=== PATIENT | female | born 2000 | race Caucasian/White ===

== ENCOUNTER 2021-10-28 22:32 | Emergency (ER) | payer OTHER ==
[2021-10-28 23:08] VITALS: PULSE 73
[2021-10-28] MEDS ORDERED: Sodium Chloride 0.9% 1000 ML 1,000 ML IV STA (23:26)
[2021-10-28] MEDS ORDERED: Reglan 10 MG/2 ML IV ONE (23:27)
[2021-10-28] MEDS ORDERED: Reglan 10 MG/2 ML ONE (23:38)
[2021-10-28] MEDS ORDERED: Sodium Chloride 0.9% 1000 ML 1,000 ML ONE (23:38)
[2021-10-28 23:43] VITALS: O2SAT 99
[2021-10-28 23:45] LABS: Absolute Neutrophil Ct (ANC) 5.65 x10^3/uL (1.4-6.9); Basophil (Absolute #) 0.03 x10^3/uL (0-0.4); Eosinophil % 0.5 % (0.00-5.0); Eosinophil (Absolute #) 0.04 x10^3/uL (0-0.5); Hematocrit 38.3 % (35-47); Lymphocyte (Absolute #) 2.26 x10^3/uL (1.0-4.6); Lymphocytes % 25.8 % (24.0-44.0); Mean Cell Volume 88.2 fL (78-100); Mean Corpuscular Hgb Concent. 33.9 g/dL (32-36); Mean Platelet Volume 9.3 fL (7.5-11.0); Monocyte (Absolute #) 0.77 x10^3/uL (0.0-1.3); Monocytes % 8.8 % (0.0-12.0); Neutrophil % 64.4 % (36.0-66.0); Platelet Count 314 x10^3/uL (150-450); Red Blood Count 4.34 x10^6/uL (4.1-5.4); Red Cell Distribution Width 12.2 % (11.5-14.0); White Blood Count 8.8 x10^3/uL (4.0-10.5)
[2021-10-29 00:05] LABS: ALBUMIN 4.1 g/dL (3.5-5.0); ALKALINE PHOSPHATASE 59 U/L (38-126); AMYLASE 85 U/L (30-110); ANION GAP 15.4 MEQ/L (5-15); BLOOD UREA NITROGEN 8 mg/dL (7-17); CHLORIDE 102 mmol/L (98-107); Calcium 9.7 mg/dL (8.4-10.2); Carbon Dioxide 21 mmol/L (22-30); Creatinine 1 0.53 mg/dL (0.52-1.04); EST GLOMERULAR FILTRATION RATE > 60.0 ML/MIN; Glucose 90 mg/dL (74-106); Potassium 4.2 mmol/L (3.5-5.1); SGOT/AST 28 U/L (14-36); SGPT/ALT 39 U/L (0-35); SODIUM 134 mmol/L (137-145); Total Protein 7.2 g/dL (6.3-8.2)
[2021-10-29 00:07] VITALS: BP 138/74
[2021-10-29 00:23] LABS: Bacteria FEW /HPF (NEGATIVE); Epithelial Cells RARE /HPF (FEW); Mucus MANY /HPF (NEGATIVE)
[2021-10-29 00:24] LABS: Appearance CLEAR (CLEAR); Bilirubin SMALL (NEGATIVE); Glucose NEGATIVE (NEGATIVE); Ketones LARGE-160 (NEGATIVE); Specific Gravity >=1.030 (1.005-1.025)
[2021-10-29 00:25] LABS: Dipstick done @ ? MAIN LAB; Nitrite NEGATIVE (NEGATIVE); Ph 5.5 (5-6); Protein,Urine Dip 30 (Negative); RBC NEGATIVE Ery/ul (0-5); Urine Cultured Indicated? NO; Urobilinogen 1 mg/dL (0-1)
--- NOTE | 2021-10-29 00:39 | ERPHSYRPT ---
- History of Present Illness Time Seen by Provider: 10/28/21 22:40 Historian: patient Exam Limitations: no limitations Patient Subjective Stated Complaint: vomiting, unable to keep anything down at all Triage Nursing Assessment: pt ambulated to room, a&o x3, skin WNL. bowel sounds hypoactive. pt states she is [address] Ayala in [facility] Physician History: Patient is a 20-year-old 1 para 0 white female with 10 weeks gestation who presents with an increase in vomiting. She had been vomiting once a day for several days even weeks but then the last 3 days she has had increased vomiting to multiple times per day. She denies any pain no fever chills or sweats. Timing/Duration: day(s) (3) Activities at Onset: none Severity of Pain-Max: none Severity of Pain-Current: none Modifying Factors: Improves With: vomiting Associated Symptoms: nausea Previous symptoms: same symptoms as today Allergies/Adverse Reactions: No Known Drug Allergies Allergy (Unverified 10/28/21 23:05) Home Medications: Ondansetron [Ondansetron Odt ] 4 gm SL Q4-6HPRN PRN 10/28/21 [History] Hx Influenza Vaccination/Date Given: No Hx Pneumococcal Vaccination/Date Given: No Travel Risk - International Travel Have you traveled outside of the country in past 3 weeks: No - Coronavirus Screening Are you exhibiting any of the following symptoms?: Yes Symptoms: Vomiting/Diarrhea Close contact with a COVID-19 positive Pt in past 14-21 Days: No - Vaccine Status Have you recieved a Covid-19 vaccination: No - Review of Systems Constitutional: No Fever, No Chills Eyes: No Symptoms Ears, Nose, & Throat: No Symptoms Respiratory: No Cough, No Dyspnea Cardiac: No Chest Pain, No Edema, No Syncope Abdominal/Gastrointestinal: Nausea, Vomiting, No Abdominal Pain, No Diarrhea Genitourinary Symptoms: No Dysuria Musculoskeletal: No Back Pain, No Neck Pain Skin: No Rash Neurological: No Dizziness, No Focal Weakness, No Sensory Changes Psychological: No Symptoms Endocrine: No Symptoms All Other Systems: Reviewed and Negative - Past Medical History Cardiac History: No Pertinent History Respiratory History: Asthma Musculoskeletal History: No Pertinent History GI Medical History: No Pertinent History History: No Pertinent History Psycho-Social History: Anxiety, Depression Female Reproductive Disorders: No Pertinent History - Past Surgical History Past Surgical History: Yes Neuro Surgical History: No Pertinent History Cardiac: No Pertinent History Respiratory: No Pertinent History Gastrointestinal: No Pertinent History Genitourinary: No Pertinent History Musculoskeletal: No Pertinent History Female Surgical History: No Pertinent History - Social History Smoking Status: Former smoker Drug Use: none Patient Lives Alone: No (S.O.) - Female History Hx Now: Yes Expected Date of Delivery: 05/25/22 - Nursing Vital Signs Nursing Vital Signs: Initial Vital Signs Temperature 98.1 F 10/28/21 22:33 Pulse Rate 73 10/28/21 22:33 Respiratory Rate 32 H 10/28/21 22:33 Blood Pressure 126/78 10/28/21 22:33 O2 Sat by Pulse Oximetry 98 10/28/21 22:33 Pain Scale Pain Intensity 2 - Physical Exam General Appearance: mild distress, alert Eye Exam: PERRL/EOMI, eyes nml inspection Ears, Nose, Throat Exam: normal ENT inspection, pharynx normal, moist mucous membranes Neck Exam: normal inspection, non-tender, supple, full range of motion Respiratory Exam: normal breath sounds, lungs clear, No respiratory distress Cardiovascular Exam: regular rate/rhythm, normal heart sounds Gastrointestinal/Abdomen Exam: soft, normal bowel sounds, tenderness, distention, No mass Back Exam: normal inspection, normal range of motion, No CVA tenderness, No vertebral tenderness Extremity Exam: normal inspection, normal range of motion, pelvis stable Neurologic Exam: alert, oriented x 3, cooperative, normal mood/affect, nml cerebellar function, sensation nml, No motor deficits Skin Exam: normal color, warm, dry SpO2 Interpretation: normal SpO2: 99 O2 Delivery: Room Air - Course Nursing assessment & vital signs reviewed: Yes Ordered Tests: Active Orders 24 hr Category Date Time Status AMYLASE Stat Lab 10/28/21 23:40 Completed CBC W DIFF Stat Lab 10/28/21 23:40 Completed CMP Stat Lab 10/28/21 23:40 Completed UA W/RFX CULTURE Stat Lab 10/29/21 00:17 Completed Medication Summary Discontinued Medications Generic Name Dose Route Start Last Admin Trade Name Freq PRN Reason Stop Dose Admin Sodium Chloride 1,000 mls @ 999 mls/hr 10/28/21 23:26 10/28/21 23:40 Sodium Chloride 0.9% 1000 Ml IV 10/29/21 00:26 999 mls/hr .Q1H1M STA Administration Sodium Chloride Confirm 10/28/21 23:38 Sodium Chloride 0.9% 1000 Ml Administered 10/28/21 23:39 Dose 1,000 mls @ ud .ROUTE .[employer] ONE Metoclopramide HCl 10 mg 10/28/21 23:27 10/28/21 23:40 Metoclopramide Hcl 10 Mg/2 Ml Vial IV 10/28/21 23:28 10 mg STAT ONE Administration Metoclopramide HCl Confirm 10/28/21 23:38 Metoclopramide Hcl 10 Mg/2 Ml Vial Administered 10/28/21 23:39 Dose 10 mg .[email or web address] ONE Lab/Rad Data: Laboratory Result Diagrams 10/28/21 23:40 10/28/21 23:40 Laboratory Results 10/29/21 10/28/21 10/28/21 Range/Units 00:17 23:40 23:40 WBC 8.8 (4.0-10.5) x10^3/uL RBC 4.34 (4.1-5.4) x10^6/uL Hgb 13.0 (12.0-16.0) g/dL Hct 38.3 (35-47) % MCV 88.2 (78-100) fL MCH 30.0 (26-32) pg MCHC 33.9 (32-36) g/dL RDW 12.2 (11.5-14.0) % Plt Count 314 (150-450) x10^3/uL MPV 9.3 (7.5-11.0) fL Gran % 64.4 (36.0-66.0) % Immature Gran % (Auto) 0.2 (0.00-0.4) % Nucleat RBC Rel Count 0.0 (0.00-0.1) % Eos # (Auto) 0.04 (0-0.5) x10^3/uL Immature Gran # (Auto) 0.02 (0.00-0.03) x10^3u/L Absolute Lymphs (auto) 2.26 (1.0-4.6) x10^3/uL Absolute Monos (auto) 0.77 (0.0-1.3) x10^3/uL Absolute Nucleated RBC 0.00 (0.00-0.01) x10^3u/L Lymphocytes % 25.8 (24.0-44.0) % Monocytes % 8.8 (0.0-12.0) % Eosinophils % 0.5 (0.00-5.0) % Basophils % 0.3 (0.0-0.4) % Absolute Granulocytes 5.65 (1.4-6.9) x10^3/uL Basophils # 0.03 (0-0.4) x10^3/uL Sodium 134 L (137-145) mmol/L Potassium 4.2 (3.5-5.1) mmol/L Chloride 102 (98-107) mmol/L Carbon Dioxide 21 L (22-30) mmol/L Anion Gap 15.4 H (5-15) MEQ/L BUN 8 (7-17) mg/dL Creatinine 0.53 (0.52-1.04) mg/dL Estimated GFR > 60.0 ML/MIN Glucose 90 (74-106) mg/dL Calcium 9.7 (8.4-10.2) mg/dL Total Bilirubin 0.40 (0.2-1.3) mg/dL AST 28 (14-36) U/L ALT 39 H (0-35) U/L Alkaline Phosphatase 59 (38-126) U/L Serum Total Protein 7.2 (6.3-8.2) g/dL Albumin 4.1 (3.5-5.0) g/dL Amylase 85 (30-110) U/L Urinalys Dipstick Clnc MAIN LAB Urine Color YELLOW (YELLOW) Urine Appearance CLEAR (CLEAR) Urine pH 5.5 (5-6) Ur Specific [place] >=1.030 (1.005-1.025) POC Urine Protein Conf 30 (Negative) Urine Ketones LARGE-160 (NEGATIVE) Urine Nitrite NEGATIVE (NEGATIVE) Urine Bilirubin SMALL (NEGATIVE) Urine Urobilinogen 1 (0-1) mg/dL Urine Leukocytes NEGATIVE (NEGATIVE) Urine WBC (Auto) NONE (0-5) /HPF Urine RBC (Auto) NONE (0-2) /HPF U Epithel Cells (Auto) RARE (FEW) /HPF Urine Bacteria (Auto) FEW (NEGATIVE) /HPF Urine RBC NEGATIVE (0-5) [place]/ul Urine Mucus (Auto) MANY (NEGATIVE) /HPF Ur Culture Indicated? NO Urine Glucose NEGATIVE (NEGATIVE) mg/dL - Progress Progress: improved - Departure Departure Disposition: Home Clinical Impression: Hyperemesis gravidarum Condition: Stable Critical Care Time: No Referrals: DOCTOR,NO FAMILY [Primary Care Provider] - Follow up/PCP as directed Instructions: Hyperemesis Gravidarum (DC) Prescriptions: Metoclopramide HCl 10 mg [Reglan 10 MG] 10 mg PO Q6H 7 Days #30 tablet
== END 2021-10-29 01:00 | disposition home or self-care (01) ==
LOC: ED 22:32
DX: O21.0 Mild hyperemesis gravidarum (principal); Z3A.10 10 weeks gestation of pregnancy; Z28.310 Unvaccinated for COVID-19
CPT/HCPCS: 36000; 36415; 80053; 81015; 82150; 85025; 96374; 99284

== ENCOUNTER 2022-01-10 04:37 | Emergency (ER) | payer OTHER ==
[2022-01-10 04:58] VITALS: O2SAT 99
--- NOTE | 2022-01-10 05:30 | ERPHSYRPT ---
- History of Present Illness Time Seen by Provider: 01/10/22 05:22 Source: patient Exam Limitations: no limitations Patient Subjective Stated Complaint: pt states her glands in her rt neck are swollen and pain is now going into her jaw and her scalp Triage Nursing Assessment: pt alert and oriented, answers questions approp. pt ambulatory with steady gait noted. respirations nonlabored. skin warm and dry. pt reports tenderness to rt neck with palpation. Physician History: 21 years old 1 para 0 at 20 weeks gestation presented in the ER with chief complaint of right neck jaw and temporal area pain. Patient reports she has swollen glands in the neck with pain radiating to the jaw and temples for the last 4 days with progressive worsening to palpation and movements of jaw. She called her OB and has taken 2 doses of amoxicillin but does not feel much better. She is worried about herself and her baby. She wants to make sure that fetus is doing okay. No fever or chills reported. No sore throat. Denies pelvic/abdominal cramping, vaginal bleeding or discharge. Timing/Duration: day(s) (4), gradual onset, worse Severity: moderate Modifying Factors: Worsens With: movement Associated Symptoms: denies symptoms Allergies/Adverse Reactions: No Known Drug Allergies Allergy (Verified 01/10/22 05:00) Home Medications: Amoxicillin 500 mg PO TID 01/10/22 [History] Hx Tetanus, Diphtheria Vaccination/Date Given: Yes Hx Influenza Vaccination/Date Given: No Hx Pneumococcal Vaccination/Date Given: No Immunizations Up to Date: Yes Travel Risk - International Travel Have you traveled outside of the country in past 3 weeks: No - Coronavirus Screening Are you exhibiting any of the following symptoms?: No Close contact with a COVID-19 positive Pt in past 14-21 Days: No - Vaccine Status Have you recieved a Covid-19 vaccination: No - Review of Systems Constitutional: No Symptoms Eyes: No Symptoms Ears, Nose, & Throat: Painful Swallowing Respiratory: No Symptoms Cardiac: No Symptoms Abdominal/Gastrointestinal: No Symptoms Genitourinary Symptoms: No Symptoms Musculoskeletal: No Symptoms Skin: No Symptoms Neurological: No Symptoms Endocrine: No Symptoms Hematologic/Lymphatic: No Symptoms - Past Medical History Pertinent Past Medical History: Yes Cardiac History: No Pertinent History Respiratory History: Asthma Musculoskeletal History: No Pertinent History GI Medical History: No Pertinent History History: No Pertinent History Psycho-Social History: Anxiety, Depression Female Reproductive Disorders: No Pertinent History - Past Surgical History Past Surgical History: Yes Neuro Surgical History: No Pertinent History Cardiac: No Pertinent History Respiratory: No Pertinent History Gastrointestinal: No Pertinent History Genitourinary: No Pertinent History Musculoskeletal: No Pertinent History Female Surgical History: No Pertinent History - Social History Smoking Status: Former smoker Exposure to second hand smoke: Yes Drug Use: none Patient Lives Alone: No (S.O.) - Female History Hx Last Menstrual Period: irreg Hx Now: Yes Expected Date of Delivery: 05/25/22 Gestational Age: 20 weeks - Nursing Vital Signs Nursing Vital Signs: Initial Vital Signs Temperature 98.0 F 01/10/22 04:46 Pulse Rate 89 01/10/22 04:46 Respiratory Rate 18 01/10/22 04:46 Blood Pressure 149/82 01/10/22 04:46 O2 Sat by Pulse Oximetry 99 01/10/22 04:46 Pain Scale Pain Intensity 7 - Physical Exam General Appearance: no apparent distress, alert Eye Exam: PERRL/EOMI Ears, Nose, Throat Exam: normal ENT inspection Neck Exam: normal inspection, full range of motion, lymphadenopathy Respiratory Exam: normal breath sounds, lungs clear Cardiovascular Exam: regular rate/rhythm, normal heart sounds Gastrointestinal/Abdomen Exam: soft Extremity Exam: normal inspection Neurologic Exam: alert, oriented x 3, cooperative, power press tender II-XII nml as tested, No normal mood/affect (Anxious) Skin Exam: normal color Lymphatic Exam: adenopathy SpO2 Interpretation: normal SpO2: 99 O2 Delivery: Room Air - Progress Progress: unchanged Progress Note: 01/10/22 05:27 21 years old is evaluated for cervical adenopathy. He is on amoxicillin since yesterday and has taken only 2 doses which is not long enough to say treatment failure. She is offered one-time dose of Bryan and she refused as it is not 100% safe. Patient mom was very authoritative and dictating her care told that she needs Tylenol with codeine as she knew it that it is 100% safe. I have told her that it is also narcotic, she can have 1 dose but it does have same kind of risks and benefits as Bryan. Mom is threatening about lawsuits. Daughter decided not to take anything and wanted to leave. She walked out of the ER in a stable condition. It was not a pleasant encounter. Counseled pt/family regarding: diagnosis, need for follow-up - Departure Departure Disposition: Home Clinical Impression: Lymphadenopathy Condition: Stable Critical Care Time: No Referrals: DOCTOR,NO FAMILY [Primary Care Provider] - Follow up/PCP as directed Instructions: Lymphadenitis (DC) Additional Instructions: Take Tylenol as needed, continue with your antibiotics. Follow-up with your OB/primary care for reevaluation. Return to ER for any worsening of pain, fever chills etc.
[2022-01-10 05:40] VITALS: BP 124/85; PULSE 85
== END 2022-01-10 05:45 | disposition home or self-care (01) ==
LOC: ED 04:37
DX: R59.0 Localized enlarged lymph nodes (principal); R51.9 Headache, unspecified; Z33.1 Pregnant state, incidental; Z28.310 Unvaccinated for COVID-19
CPT/HCPCS: 99283